=== PATIENT | male | born 2000 | race Caucasian/White ===

== ENCOUNTER → 2022-12-09 08:33 | Outpatient (BNVA) | payer MEDICAID, SELFPAY | PROVIDERS: Family Provider Pediatrics Adolescent Medicine; PCP Family Medicine Adult Medicine; Visit Provider Family Medicine Adult Medicine | DX: R55 Syncope and collapse (principal); Z82.49 Family history of ischemic heart disease and other diseases of the circulatory system; Z83.3 Family history of diabetes mellitus; R09.89 Other specified symptoms and signs involving the circulatory and respiratory systems | CPT/HCPCS: 80053; 80061; 83036; 84443; 85025 ==

== ENCOUNTER 2023-03-14 08:56 | Emergency (ER) | payer MEDICAID, SELFPAY ==
[2023-03-14 09:02] VITALS: BP 136/98; PULSE 52; RESP 18; TEMP 36.6; O2SAT 100; BMI 22.9
--- NOTE | 2023-03-14 09:15 | XRR_ITS ---
PROCEDURE INFORMATION: Exam: XR Chest Exam date and time: 03/14/2023 8:23 AM Age: 22 years old Clinical indication: Pain; Shortness of breath; On breathing; Additional info: Chest pain/sob TECHNIQUE: Imaging protocol: Radiologic exam of the chest. Views: 1 view. COMPARISON: No relevant prior studies available. FINDINGS: Lungs: Lungs are clear. Pleural spaces: There is no pleural effusion or pneumothorax. Heart/Mediastinum: Cardiomediastinal contours are unremarkable. Bones/joints: Bones are unremarkable. XR/XR chest 1V portable [id number] IMPRESSION: No acute findings.
--- NOTE | 2023-03-14 09:16 | W.ED.CHESTPA ---
HPI - Chest Pain General: Chief Complaint: Chest Pain Stated Complaint: sob, chest pain Time Seen by Provider: 03/14/23 08:57 Source: patient and other (girlfriend) Mode of arrival: ambulatory Limitations: no limitations History of Present Illness: Patient is a 22-year-old male who presents to ED today along with his girlfriend for complaints of chest pain and shortness of breath that has been present over the past few days. Patient tells me he is very anxious and wants to be checked for cancer . Patient states pain seems to be worse with coughing and deep inhalation. He has not found any alleviating factors to his discomfort. He states he has had a little bit of a sore throat and some nasal congestion but denies chest congestion or productive cough. Patient states he vapes, smokes cigarettes, and smokes marijuana. Patient states discomfort does not seem to be affected by exertion. He has not noticed any lower extremity swelling. No fevers. MD complaint: chest pain and other (SOB) Onset (ago): day(s) Timing of current episode: constant Prior episodes: No Pain location: substernal Pain radiation: none Relieving factors: nothing Exacerbating factors: inspiration Associated symptoms: Reports abdominal pain, dyspnea and nausea; Deny fever(s), palpitations, syncope or vomiting Treatment prior to arrival: none Risk Factors: Coronary artery disease risk factors: smoking history Thoracic aortic dissection risk factors: none Review of Systems Const: Denies: fever(s), chills, body aches, fatigue or malaise Card: Reports: chest pain and dyspnea on exertion; Denies: palpitations, irregular heart rhythm, edema, swelling of feet/ankles, lightheadedness, syncope, pre-syncope, orthopnea, leg pain with exertion or acrocyanosis Resp: Reports: dyspnea, non-productive cough and pain on inspiration; Denies: productive cough, wheezing, change in phlegm color, hemoptysis or chest congestion GI: Reports: abdominal pain and nausea; Denies: vomiting, hematemesis, heartburn or diarrhea : Denies: dysuria, hematuria or testicular pain Musc: Denies: neck pain, back pain, extremity pain or joint pain Skin/Breast: Denies: rash Neuro: Denies: headache(s) or dizziness PFS ED PFSH: Medical History Family history of diabetes mellitus (DM) Family history of heart disease Lymph node symptom Syncope and collapse Surgical History No pertinent past surgical history Family History Father Seizures Mother No problems noted. Social History Smoking and tobacco status: current every day smoker Quit status (tobacco): not considering quitting Second hand smoke exposure: No Smoking risk assessment/counseling performed?: No Alcohol intake: current Alcohol intake frequency: few times a month Alcohol type: beer Desire information about alcohol rehabilitation?: No Counseling given: No Substance/Drug Use: current Substance/Drug use frequency: few times a week Desire information about substance/drug rehabilitation?: No Counseling given: No Physical Exam Const: COMMON NORMALS: no acute distress, average body habitus, patient oriented x3, no limitations, healthy appearing, alert and well nourished GENERAL APPEARANCE: anxious HENMT: COMMON NORMALS: normocephalic and atraumatic HEAD & SCALP: normal to inspection, normocephalic and atraumatic Neck/C-Spine: COMMON NORMALS: no JVD GENERAL: Yes normal visual inspection Chest: COMMONS NORMALS: normal inspection of the chest OTHER: chest pain is easily reproducible with palpation of anterior chest wall Resp: COMMON NORMALS: normal respiratory effort and clear to auscultation bilaterally AUSCULTATION: clear to auscultation bilaterally Cardio: COMMON NORMALS: no JVD, regular rate and regular rhythm RATE: regular rate RHYTHM: regular rhythm GI: COMMON NORMALS: Normal to inspection, nondistended, normoactive bowel sounds present, Soft to palpation, No hepatosplenomegaly present and no masses INSPECTION: Yes normal to inspection AUSCULTATION: Yes normoactive bowel sounds PALPATION: Yes Soft to palpation, Yes Tenderness to palpation present (GI) (mild generalized tenderness-non surgical exam ), No Guarding due to palpation present (GI), No Rigid due to palpation and Yes No hepatosplenomegaly present : COMMON NORMALS: Yes no CVA tenderness BLADDER/KIDNEY EXAM: Yes no CVA tenderness Back/Pelvis: COMMON NORMALS: no CVA tenderness, thoracic and lumbar spine normal to inspection, no thoracic nor lumbar tenderness and thoraco-lumbar ROM normal Extremity: COMMON NORMALS: normal to inspection GENERAL: Yes normal exam except as noted Neuro: CARLOS COMA SCALE: document GCS findings Carlos coma scale eye opening: Spontaneous [place] coma scale verbal response: Orientated Carlos coma scale motor response: Obey commands Carlos coma scale total score: 15 COMMON NORMALS: patient oriented x3 SENSORIUM/ORIENTATION: Yes alert Skin: COMMON NORMALS: no rashes or lesions noted GENERAL SKIN EXAM: no rashes or lesions noted Course Vital Signs: Vital signs: Vital Signs Temperature 97.9 F 03/14/23 09:02 Pulse Rate 52 L 03/14/23 11:03 Respiratory Rate 18 03/14/23 09:02 Blood Pressure 134/84 03/14/23 11:03 Pulse Oximetry 99 03/14/23 11:03 Oxygen Delivery Me thod Room Air 03/14/23 09:02 MDM - Chest Pain Medical Decision Making Patient appears in no acute distress other than he is very anxious that his symptoms could be secondary to cancer. Vital signs are stable. He is slightly bradycardic but this is most likely physiologic as patient is young/fit/active. Symptoms most likely are secondary to patient's chronic inhalant use of vapes, marijuana, and cigarettes. Discussed with patient at length the need to discontinue these. Blood work overall is unremarkable. His CXR is normal. EKG showing no ischemic or concerning findings. Reviewed with Dr. Ponce. Patient was offered steroids but he feels this would most likely worsen his anxiety. Discussed following up with primary care by the end of the week. Return ED precautions given. Lab Data 03/14/23 09:50 03/14/23 09:50 Radiology Impressions Chest X-Ray 03/14/23 09:15 IMPRESSION: No acute findings. Laboratory Results WBC 8.4 10^3/uL (4.5-13.0) 03/14/23 09:50 RBC 4.89 10^6/uL (4.1-5.3) 03/14/23 09:50 Hgb 15.7 g/dL (11.7-16.6) 03/14/23 09:50 Hct 46.6 % (42.0-52.0) 03/14/23 09:50 MCV 95.3 fl (80-94) H 03/14/23 09:50 MCH 32.1 pg (28.0-34.0) 03/14/23 09:50 MCHC 33.7 g/dL (30.0-36.0) 03/14/23 09:50 RDW 12.1 % (12.1-15.1) 03/14/23 09:50 Plt Count 213 10^3/cmm (130-400) 03/14/23 09:50 MPV 11.5 fL (7.4-10.4) H 03/14/23 09:50 Neut % (Auto) 50.2 % 03/14/23 09:50 Lymph % (Auto) 35.4 % 03/14/23 09:50 Sully % (Auto) 9.1 % 03/14/23 09:50 Eos % (Auto) 4.6 % 03/14/23 09:50 Baso % (Auto) 0.6 % 03/14/23 09:50 Neut # (Auto) 4.23 10^3/uL (1.8-8.0) 03/14/23 09:50 Lymph # (Auto) 3.0 10^3/uL (1.5-6.5) 03/14/23 09:50 [place]ully # (Auto) 0.8 10^3/uL (0.2-0.9) 03/14/23 09:50 Eos # (Auto) 0.4 10^3/uL (0.0-0.8) 03/14/23 09:50 Baso # (Auto) 0.1 10^3/uL (0.0-0.1) 03/14/23 09:50 Nucleated RBC % (auto) 0 % 03/14/23 09:50 Nucleated RBCs # 0.0 /100WBC 03/14/23 09:50 Sodium 139 mmol/L (136-145) 03/14/23 09:50 Potassium 4.1 mmol/L (3.5-5.1) 03/14/23 09:50 Chloride 108 mmol/L (98-107) H 03/14/23 09:50 Carbon Dioxide 22 mmol/L (22-29) 03/14/23 09:50 Anion Gap 13.1 (5-19) 03/14/23 09:50 BUN 13 mg/dL (6-20) 03/14/23 09:50 Creatinine 0.7 mg/dL (0.7-1.2) 03/14/23 09:50 GFR Calculation 143.8 mL/min (90-130) H 03/14/23 09:50 Glucose 88 mg/dL (65-115) 03/14/23 09:50 Calculated Osmolality 288 mOsm/kg (285-295) 03/14/23 09:50 Calcium 8.9 mg/dL (8.5-10.5) 03/14/23 09:50 Total Bilirubin 0.3 mg/dL (0.15-1.2) 03/14/23 09:50 AST 10 U/L (0-40) 03/14/23 09:50 ALT 12 U/L (0-41) 03/14/23 09:50 Alkaline Phosphatase 74 U/L (40-130) 03/14/23 09:50 Total Protein 6.6 g/dL (6.6-8.7) 03/14/23 09:50 Albumin 4.3 g/dL (3.5-5.2) 03/14/23 09:50 Globulin 2.3 g/dL (1.3-4.6) 03/14/23 09:50 Discharge Plan Discharge Patient Disposition: Home Clinical Impression: E-cigarette or vaping product use associated lung injury (EVALI) Condition: Stable Prescriptions: No Action No Known Home Medications Discharge Orders: Discharge ED (Routine); Ordered 03/14/23 Ordered By: Jo Ann Irwin Referrals: Federico Quezada MD [Primary Care Provider] - Patient Instructions: How to Stop Smoking (ED), EVALI (E-cigarette or Vaping-Associated Lung Injury) (ED), Quitting Smoking Activity Restrictions/Additional Instructions: As we discussed I think the most likely etiology for your symptoms is related to your vaping use, cigarette smoking, and marijuana smoking. We discussed forming a plan to gradually discontinue these. Please follow-up with your primary care provider by the end of the week for reevaluation. You need to return to the emergency department for worsening chest pain, shortness of breath, difficulty breathing. 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
--- NOTE | 2023-03-14 09:24 | ECG_ITS ---
[facility] Test Date: 2023-03-14 Pat Name: Erlin Kearney Department: Room: Gender: Male Mailroom Personnel: : 2000 Requested By: Jo Ann Irwin Order Number: [id number] Chong MD: Chi Pedro M.D. Measurements Intervals [place] Rate: 49 P: -8 VT: 120 QRS: 86 QRSD: 90 T: 67 QT: 412 QTc: 372 Interpretive Statements SINUS BRADYCARDIA No previous ECG available for comparison Electronically Signed On 03-15-2023 8:31:19 CDT by Chi Pedro M.D. [id number]
[2023-03-14 09:40] VITALS: BP 124/69; PULSE 73; O2SAT 97
[2023-03-14 10:05] LABS: Basophils # 0.1 10^3/uL (0.0-0.1); Basophils % 0.6 %; Eosinophils # 0.4 10^3/uL (0.0-0.8); Eosinophils % 4.6 %; Hematocrit 46.6 % (42.0-52.0); Hemoglobin 15.7 g/dL (11.7-16.6); Lymphocytes % 35.4 %; Mean Corpuscular HGB Conc 33.7 g/dL (30.0-36.0); Mean Corpuscular Hemoglobin 32.1 pg (28.0-34.0); Mean Corpuscular Volume 95.3 fl (80-94); Mean Platelet Volume 11.5 fL (7.4-10.4); Monocytes # 0.8 10^3/uL (0.2-0.9); Monocytes % 9.1 %; Neutrophils # 4.23 10^3/uL (1.8-8.0); Neutrophils % 50.2 %; Nucleated Red Blood Cells % 0 %; Platelet Count 213 10^3/cmm (130-400); Red Blood Count 4.89 10^6/uL (4.1-5.3); Red Cell Distribution Width 12.1 % (12.1-15.1); White Blood Count 8.4 10^3/uL (4.5-13.0)
[2023-03-14 10:17] VITALS: BP 120/80; PULSE 56; O2SAT 99
[2023-03-14 10:23] LABS: Alanine Aminotransferase 12 U/L (0-41); Albumin Level 4.3 g/dL (3.5-5.2); Alkaline Phosphatase 74 U/L (40-130); Anion Gap 13.1 (5-19); Aspartate Amino Transferase 10 U/L (0-40); Blood Urea Nitrogen 13 mg/dL (6-20); Calcium 8.9 mg/dL (8.5-10.5); Carbon Dioxide 22 mmol/L (22-29); Chloride 108 mmol/L (98-107); Creatinine Clr Calc Pharmacy 173.4048; Globulin 2.3 g/dL (1.3-4.6); Glomerular Filtration Rate 143.8 mL/min (90-130); Glucose 88 mg/dL (65-115); Osmolality Calculated 288 mOsm/kg (285-295); Potassium 4.1 mmol/L (3.5-5.1); Sodium 139 mmol/L (136-145); Total Bilirubin 0.3 mg/dL (0.15-1.2); Total Protein 6.6 g/dL (6.6-8.7)
[2023-03-14 11:03] VITALS: BP 134/84; PULSE 52; O2SAT 99
== END 2023-03-14 11:04 | disposition home or self-care (01) ==
PROVIDERS: Emergency Provider Physician Assistant; PCP Family Medicine Adult Medicine
DX: U07.0 Vaping-related disorder (principal); F17.210 Nicotine dependence, cigarettes, uncomplicated
CPT/HCPCS: 36415; 71045; 80053; 85025; 93005; 99285

== ENCOUNTER → 2023-07-03 18:45 | Outpatient (BNVA) | payer MEDICAID, SELFPAY | PROVIDERS: PCP Family Medicine Adult Medicine; Visit Provider Nurse Practitioner Family | DX: R50.9 Fever, unspecified (principal); R05.9 Cough, unspecified; R06.02 Shortness of breath; Z20.822 Contact with and (suspected) exposure to COVID-19 | CPT/HCPCS: 87426 ==

== ENCOUNTER 2024-02-20 20:05 | Emergency (ER) | payer MEDICAID, SELFPAY ==
[2024-02-20 20:12] VITALS: BP 116/72; PULSE 116; RESP 18; TEMP 37.1; O2SAT 99
--- NOTE | 2024-02-20 20:28 | XRR_ITS ---
PROCEDURE INFORMATION: Exam: XR Chest Exam date and time: 02/20/2024 8:31 PM Age: 23 years old Clinical indication: Angina; Additional info: Cp TECHNIQUE: Imaging protocol: Radiologic exam of the chest. Views: 1 view. COMPARISON: CR XR chest 1V portable [id number] 03/14/2023 8:23 AM FINDINGS: Lungs: Unremarkable. No consolidation. Pleural spaces: Unremarkable. No pleural effusion. No pneumothorax. Heart/Mediastinum: Unremarkable. No cardiomegaly. Bones/joints: Unremarkable. XR/XR chest 1V portable [id number] IMPRESSION: No acute findings.
--- NOTE | 2024-02-20 20:29 | ECG_ITS ---
[facility] Test Date: 2024-02-20 Pat Name: Erlin Kearney Department: Room: Gender: Male Structural Analysis Engineer: : 2000 Requested By: Marlon Veloz Order Number: [id number] Castillo MD: Chi Pedro M.D. Measurements Intervals [place] Rate: 98 P: 86 [place]: 144 QRS: 93 QRSD: 92 T: 68 QT: 326 QTc: 418 Interpretive Statements SINUS RHYTHM WITH SINUS ARRHYTHMIA BORDERLINE RIGHT AXIS DEVIATION [QRS AXIS > 90] Compared to ECG 03/14/2023 09:24:31 Sinus bradycardia no longer present Electronically Signed On 02-20-2024 23:21:08 CDT by Chi Pedro M.D. [id number]
--- NOTE | 2024-02-20 20:30 | W.ED.CHESTPA ---
Documented by User: BLANCA Bliss 02/20/24 22:39 HPI - Chest Pain General: Chief Complaint: Chest Pain Stated Complaint: Chest pain jumping in chest left arm pain Time Seen by Provider: 02/20/24 20:15 Source: patient Mode of arrival: ambulatory Limitations: no limitations History of Present Illness: Patient is a 23-year-old male who presents to the emergency department complaining of chest pain onset intermittently for the past few years. Patient states that the pains began after he took the [employer] COVID shot in 2019. He notes that it was the worst its ever been this morning and has been associated with palpitations, diaphoresis, shortness of breath, left arm pain, and back pain. He also notes that he smokes marijuana regularly, and has been nauseous. He denies any cardiac history. He notes that he was seen in the emergency department for chest pain once in the past, however was discharged shortly after he told them that the pain was due to the COVID shot. He sees Dr. Quezada for primary care, and states it has been about a year since he has seen him. He denies any medical history or medications. No pertinent family history in terms of cardiac issues. The chest pain is reportedly epigastric in nature, and radiates to both his left and right chest. He notes that it is sharp, and is currently present on examination. No specific alleviating or exacerbating factors noted. MD complaint: chest pain Onset (ago): year(s) Timing of current episode: episodic Prior episodes: Yes Pain location: epigastric Pain radiation: left arm and back Severity: moderate Quality: sharp Relieving factors: nothing Exacerbating factors: nothing Associated symptoms: Reports abdominal pain, diaphoresis, dyspnea, nausea and palpitations; Deny fever(s) or vomiting Treatment prior to arrival: none Risk Factors: Coronary artery disease risk factors: none Thoracic aortic dissection risk factors: none Review of Systems General: Reports: 10 or more systems reviewed and unremarkable except in HPI and below Const: Reports: diaphoresis; Denies: fever(s), chills or fatigue Eyes: Denies: change in vision ENMT: Denies: throat pain, ear or mastoid pain or nasal discharge Card: Reports: chest pain and palpitations; Denies: swelling of feet/ankles or lightheadedness Resp: Reports: dyspnea; Denies: productive cough or wheezing GI: Reports: abdominal pain and nausea; Denies: vomiting, diarrhea or constipation : Denies: flank pain, difficulty urinating, dysuria or urinary frequency Musc: Reports: back pain and extremity pain (Left arm); Denies: neck pain or joint pain Skin/Breast: Denies: rash Neuro: Denies: headache(s), numbness in extremities or weakness in extremities PFSH ED PFSH: Medical History Lymph node symptom Syncope and collapse Family history of diabetes mellitus (DM) Family history of heart disease Surgical History No pertinent past surgical history Family History Father Seizures Mother No problems noted. Social History Smoking and tobacco/nicotine status: current every day tobacco/nicotine user Quit status (tobacco/nicotine): not considering quitting Second hand smoke exposure: No Alcohol intake: current Alcohol intake frequency: few times a month Alcohol type: beer Substance/Drug Use: current Substance/Drug use frequency: few times a week Physical Exam Const: COMMON NORMALS: no acute distress, patient oriented x3 and no limitations GENERAL APPEARANCE: cooperative, comfortable, well developed and anxious ORIENTATION/CONSCIOUSNESS: Yes awake, Yes oriented to person, Yes oriented to place and Yes oriented to time HENMT: COMMON NORMALS: normocephalic, atraumatic and hearing grossly normal bilaterally HEAD & SCALP: normocephalic and atraumatic Eye: COMMON NORMALS: Equal, round and reactive pupils present, EOMs intact bilaterally and conjunctivae normal CONJUNCTIVA: Yes conjunctivae normal PUPIL: Yes Equal, round and reactive pupils present Neck/C-Spine: COMMON NORMALS: full ROM, supple and no JVD Chest: COMMONS NORMALS: normal inspection of the chest Resp: COMMON NORMALS: normal respiratory effort, No retractions, No use of accessory muscles and clear to auscultation bilaterally AUSCULTATION: clear to auscultation bilaterally Cardio: COMMON NORMALS: no JVD, regular rhythm, No clicks present (Cardio), No murmurs present (Cardio) and No rub (Cardio) RATE: tachycardic RHYTHM: regular rhythm GI: COMMON NORMALS: Normal to inspection, nondistended, normoactive bowel sounds present and Soft to palpation AUSCULTATION: Yes normoactive bowel sounds PALPATION: Yes Soft to palpation and Yes Tenderness to palpation present (GI) (Epigastric) RECTAL EXAM: Yes deferred : COMMON NORMALS: Yes no CVA tenderness BLADDER/KIDNEY EXAM: Yes no CVA tenderness Back/Pelvis: COMMON NORMALS: no CVA tenderness, thoracic and lumbar spine normal to inspection, no thoracic nor lumbar tenderness and thoraco-lumbar ROM normal Extremity: COMMON NORMALS: normal to inspection, full ROM and capillary refill normal Neuro: COMMON NORMALS: patient oriented x3, moves all extremities, no focal motor deficits and no sensory deficits noted SENSORIUM/ORIENTATION: Yes oriented to person, Yes oriented to place and Yes oriented to time Psych: COMMON NORMALS: mental status grossly normal and Normal thought process present THOUGHT PROCESS: Normal thought process present Skin: COMMON NORMALS: no rashes or lesions noted GENERAL SKIN EXAM: no rashes or lesions noted Course Vital Signs: Vital signs: Vital Signs Temperature 98.8 F 02/20/24 20:12 Pulse Rate 88 02/20/24 22:00 Respiratory Rate 14 02/20/24 22:00 Blood Pressure 114/79 02/20/24 22:00 Pulse Oximetry 99 02/20/24 22:00 Oxygen Delivery Me thod Room Air 02/20/24 22:00 MDM - Chest Pain Medical Decision Making Patient was seen for chest pain, stating he has had past few years since receiving COVID vaccination. Noted multiple other symptoms, states he recently went cold turkey with marijuana. On arrival his vitals were normal aside from an elevated heart rate, however patient was anxious. His examination was unremarkable. His potassium was slightly low, he was given 40 mill equivalents here in the emergency department. His chest x-ray and EKG were both unremarkable. Troponin normal. D-dimer negative. The rest of his lab work essentially unremarkable. Patient was given Zofran and fluids, and upon recheck states he felt better. I informed him of his normal workup, and will treat his epigastric pain with Pepcid and give him Zofran to take for the nausea. I informed him to increase his fluid intake as well as to follow-up with his primary care in the next week for reevaluation and to discuss ED visit. I do believe his pain is related to acid reflux and there is a component of anxiety in terms of his systemic symptoms, and patient does believe that he possibly had a panic attack. For this I also told him to follow-up with primary care to discuss the symptoms. Patient agrees with this plan and strict return precautions were given. Lab Data I reviewed the patient's lab results. 02/20/24 20:48 02/20/24 20:48 Radiology Impressions Chest X-Ray 02/20/24 20:28 IMPRESSION: No acute findings. Laboratory Results WBC 11.28 10^3/uL (3.29-11.43) 02/20/24 20:48 RBC 4.74 10^6/uL (3.85-5.65) 02/20/24 20:48 Hgb 15.30 g/dL (11.27-16.99) 02/20/24 20:48 Hct 39.9 % (37-53) 02/20/24 20:48 MCV 84.2 fl (82-101) 02/20/24 20:48 MCH 32.3 pg (27-33) 02/20/24 20:48 MCHC 38.3 g/dL (30-55) 02/20/24 20:48 RDW 11.9 % (12.1-15.1) L 02/20/24 20:48 Plt Count 234 10^3/cmm (157-399) 02/20/24 20:48 MPV 11.7 fL (7.4-10.4) H 02/20/24 20:48 Neut % (Auto) 45.7 % 02/20/24 20:48 Lymph % (Auto) 42.2 % 02/20/24 20:48 [place] % (Auto) 10.1 % 02/20/24 20:48 Eos % (Auto) 1.2 % 02/20/24 20:48 Baso % (Auto) 0.6 % 02/20/24 20:48 Neut # (Auto) 5.15 10^3/uL (1.8-7.7) 02/20/24 20:48 Lymph # (Auto) 4.8 10^3/uL (0.8-4.8) 02/20/24 20:48 [place] # (Auto) 1.1 10^3/uL (0.2-0.9) H 02/20/24 20:48 Eos # (Auto) 0.1 10^3/uL (0.0-0.8) 02/20/24 20:48 Baso # (Auto) 0.1 10^3/uL (0.0-0.1) 02/20/24 20:48 Nucleated RBC % (auto) 0 % 02/20/24 20:48 Nucleated RBCs # 0.0 /100WBC 02/20/24 20:48 D-Dimer <= 0.27 ug/mLFEU (0-0.59) 02/20/24 20:48 Sodium 141 mmol/L (136-145) 02/20/24 20:48 Potassium 3.2 mmol/L (3.5-5.1) L 02/20/24 20:48 Chloride 103 mmol/L (98-107) 02/20/24 20:48 Carbon Dioxide 21 mmol/L (22-29) L 02/20/24 20:48 Anion Gap 20.2 (5-19) H 02/20/24 20:48 BUN 12 mg/dL (6-20) 02/20/24 20:48 Creatinine 1.0 mg/dL (0.7-1.2) 02/20/24 20:48 GFR Calculation 94.3 mL/min (90-130) 02/20/24 20:48 Glucose 83 mg/dL (65-115) 02/20/24 20:48 Calculated Osmolality 291 mOsm/kg (285-295) 02/20/24 20:48 Calcium 9.7 mg/dL (8.5-10.5) 02/20/24 20:48 Total Bilirubin 1.0 mg/dL (0.15-1.2) 02/20/24 20:48 AST 14 U/L (0-40) 02/20/24 20:48 ALT 9 U/L (0-41) 02/20/24 20:48 Alkaline Phosphatase 90 U/L (40-130) 02/20/24 20:48 Troponin T Baseline < 6 ng/L (0-15) 02/20/24 20:48 Total Protein 7.4 g/dL (6.6-8.7) 02/20/24 20:48 Albumin 4.9 g/dL (3.5-5.2) 02/20/24 20:48 Globulin 2.5 g/dL (1.3-4.6) 02/20/24 20:48 Lipase 7 U/L (13-60) L 02/20/24 20:48 Urine Color Yellow (Yellow) 02/20/24 21:11 Urine Appearance Sl hazy (CLEAR) A 02/20/24 21:11 Urine pH 5 (5-7) 02/20/24 21:11 Ur Specific [place] 1.025 (1.005-1.030) 02/20/24 21:11 Urine Protein Trace (Negative) 02/20/24 21:11 Urine Glucose (UA) Norm (Normal) 02/20/24 21:11 Urine Ketones 3+ (Negative) H 02/20/24 21:11 Urine Blood Neg (Negative) 02/20/24 21:11 Urine Nitrate Negative (Negative) 02/20/24 21:11 Urine Bilirubin 1+ (Negative) H 02/20/24 21:11 Urine Urobilinogen 1 mg/dL (Negative) H 02/20/24 21:11 Ur Leukocyte Esterase Negative (Negative) 02/20/24 21:11 Urine RBC None /hpf (0-2) 02/20/24 21:11 Urine WBC None /hpf (0-5) 02/20/24 21:11 Ur Squamous Epith Cells None /hpf (0-5) 02/20/24 21:11 Amorphous Sediment 1+ /hpf 02/20/24 21:11 Urine Bacteria Trace /hpf (NONE) 02/20/24 21:11 Urine Mucus 3+ /hpf 02/20/24 21:11 Urine Opiates Screen Negative ng/mL (Negative) 02/20/24 21:11 Ur Barbiturates Screen Negative ng/mL (Negative) 02/20/24 21:11 Ur Phencyclidine Scrn Negative ng/mL (Negative) 02/20/24 21:11 Ur Amphetamines Screen Negative ng/mL (Negative) 02/20/24 21:11 U Benzodiazepines Scrn Negative ng/mL (Negative) 02/20/24 21:11 Urine Cocaine Screen Negative ng/mL (Negative) 02/20/24 21:11 U Marijuana (THC) Screen Positive ng/mL (Negative) H 02/20/24 21:11 All radiology interpretation(s) finalized by discharge Discharge Plan Discharge Patient Disposition: Home Clinical Impression: Chest pain Qualifiers: Chest pain type: unspecified Qualified Code(s): R07.9 - Chest pain, unspecified Condition: Stable Prescriptions: New Pepcid 20 mg tablet 20 mg PO BID Qty: 30 0RF ondansetron HCl 4 mg tablet 4 mg PO Q8H Qty: 30 0RF No Action albuterol sulfate [Ventolin HFA] 90 mcg/actuation HFA aerosol inhaler 1 - 2 puff inhalation Q6H PRN (Reason: shortness of breath or wheezing) Qty: 8.5 0RF Discharge Orders: Discharge ED (Routine); Ordered 02/20/24 Ordered By: Marlon Chao Referrals: Federico Quezada MD [Primary Care Provider] - Discharge Diet: As Directed Discharge Activity: Increase activity as tolerated Patient Instructions: GERD (Gastroesophageal Reflux Disease) (ED), Noncardiac Chest Pain (ED) Activity Restrictions/Additional Instructions: Plenty of fluids. Zofran for nausea as needed. Pepcid as directed. Follow-up with your primary care as discussed. Return if you develop any new or worsening symptoms. 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 Social History Smoking and tobacco/nicotine status: current every day tobacco/nicotine user Quit status (tobacco/nicotine): not considering quitting Second hand smoke exposure: No Alcohol intake: current Alcohol intake frequency: few times a month Alcohol type: beer Substance/Drug Use: current Substance/Drug use frequency: few times a week Course Vital Signs: Vital signs: Vital Signs Temperature 98.8 F 02/20/24 20:12 Pulse Rate 88 02/20/24 22:00 Respiratory Rate 14 02/20/24 22:00 Blood Pressure 114/79 02/20/24 22:00 Pulse Oximetry 99 02/20/24 22:00 Oxygen Delivery Me thod Room Air 02/20/24 22:00 MDM - Chest Pain Medical Decision Making Patient was seen for chest pain, stating he has had past few years since receiving COVID vaccination. Noted multiple other symptoms, states he recently went cold turkey with marijuana. On arrival his vitals were normal aside from an elevated heart rate, however patient was anxious. His examination was unremarkable. His potassium was slightly low, he was given 40 mill equivalents here in the emergency department. His chest x-ray and EKG were both unremarkable. Troponin normal. D-dimer negative. The rest of his lab work essentially unremarkable. Patient was given Zofran and fluids, and upon recheck states he felt better. I informed him of his normal workup, and will treat his epigastric pain with Pepcid and give him Zofran to take for the nausea. I informed him to increase his fluid intake as well as to follow-up with his primary care in the next week for reevaluation and to discuss ED visit. I do believe his pain is related to acid reflux and there is a component of anxiety in terms of his systemic symptoms, and patient does believe that he possibly had a panic attack. For this I also told him to follow-up with primary care to discuss the symptoms. Patient agrees with this plan and strict return precautions were given. Chart reviewed Lab Data 02/20/24 20:48 02/20/24 20:48 Radiology Impressions Chest X-Ray 02/20/24 20:28 IMPRESSION: No acute findings. Laboratory Results WBC 11.28 10^3/uL (3.29-11.43) 02/20/24 20:48 RBC 4.74 10^6/uL (3.85-5.65) 02/20/24 20:48 Hgb 15.30 g/dL (11.27-16.99) 02/20/24 20:48 Hct 39.9 % (37-53) 02/20/24 20:48 MCV 84.2 fl (82-101) 02/20/24 20:48 MCH 32.3 pg (27-33) 02/20/24 20:48 MCHC 38.3 g/dL (30-55) 02/20/24 20:48 RDW 11.9 % (12.1-15.1) L 02/20/24 20:48 Plt Count 234 10^3/cmm (157-399) 02/20/24 20:48 MPV 11.7 fL (7.4-10.4) H 02/20/24 20:48 Neut % (Auto) 45.7 % 02/20/24 20:48 Lymph % (Auto) 42.2 % 02/20/24 20:48 [place] % (Auto) 10.1 % 02/20/24 20:48 Eos % (Auto) 1.2 % 02/20/24 20:48 Baso % (Auto) 0.6 % 02/20/24 20:48 Neut # (Auto) 5.15 10^3/uL (1.8-7.7) 02/20/24 20:48 Lymph # (Auto) 4.8 10^3/uL (0.8-4.8) 02/20/24 20:48 [place] # (Auto) 1.1 10^3/uL (0.2-0.9) H 02/20/24 20:48 Eos # (Auto) 0.1 10^3/uL (0.0-0.8) 02/20/24 20:48 Baso # (Auto) 0.1 10^3/uL (0.0-0.1) 02/20/24 20:48 Nucleated RBC % (auto) 0 % 02/20/24 20:48 Nucleated RBCs # 0.0 /100WBC 02/20/24 20:48 D-Dimer <= 0.27 ug/mLFEU (0-0.59) 02/20/24 20:48 Sodium 141 mmol/L (136-145) 02/20/24 20:48 Potassium 3.2 mmol/L (3.5-5.1) L 02/20/24 20:48 Chloride 103 mmol/L (98-107) 02/20/24 20:48 Carbon Dioxide 21 mmol/L (22-29) L 02/20/24 20:48 Anion Gap 20.2 (5-19) H 02/20/24 20:48 BUN 12 mg/dL (6-20) 02/20/24 20:48 Creatinine 1.0 mg/dL (0.7-1.2) 02/20/24 20:48 GFR Calculation 94.3 mL/min (90-130) 02/20/24 20:48 Glucose 83 mg/dL (65-115) 02/20/24 20:48 Calculated Osmolality 291 mOsm/kg (285-295) 02/20/24 20:48 Calcium 9.7 mg/dL (8.5-10.5) 02/20/24 20:48 Total Bilirubin 1.0 mg/dL (0.15-1.2) 02/20/24 20:48 AST 14 U/L (0-40) 02/20/24 20:48 ALT 9 U/L (0-41) 02/20/24 20:48 Alkaline Phosphatase 90 U/L (40-130) 02/20/24 20:48 Troponin T Baseline < 6 ng/L (0-15) 02/20/24 20:48 Total Protein 7.4 g/dL (6.6-8.7) 02/20/24 20:48 Albumin 4.9 g/dL (3.5-5.2) 02/20/24 20:48 Globulin 2.5 g/dL (1.3-4.6) 02/20/24 20:48 Lipase 7 U/L (13-60) L 02/20/24 20:48 Urine Color Yellow (Yellow) 02/20/24 21:11 Urine Appearance Sl hazy (CLEAR) A 02/20/24 21:11 Urine pH 5 (5-7) 02/20/24 21:11 Ur Specific [place] 1.025 (1.005-1.030) 02/20/24 21:11 Urine Protein Trace (Negative) 02/20/24 21:11 Urine Glucose (UA) Norm (Normal) 02/20/24 21:11 Urine Ketones 3+ (Negative) H 02/20/24 21:11 Urine Blood Neg (Negative) 02/20/24 21:11 Urine Nitrate Negative (Negative) 02/20/24 21:11 Urine Bilirubin 1+ (Negative) H 02/20/24 21:11 Urine Urobilinogen 1 mg/dL (Negative) H 02/20/24 21:11 Ur Leukocyte Esterase Negative (Negative) 02/20/24 21:11 Urine RBC None /hpf (0-2) 02/20/24 21:11 Urine WBC None /hpf (0-5) 02/20/24 21:11 Ur Squamous Epith Cells None /hpf (0-5) 02/20/24 21:11 Amorphous Sediment 1+ /hpf 02/20/24 21:11 Urine Bacteria Trace /hpf (NONE) 02/20/24 21:11 Urine Mucus 3+ /hpf 02/20/24 21:11 Urine Opiates Screen Negative ng/mL (Negative) 02/20/24 21:11 Ur Barbiturates Screen Negative ng/mL (Negative) 02/20/24 21:11 Ur Phencyclidine Scrn Negative ng/mL (Negative) 02/20/24 21:11 Ur Amphetamines Screen Negative ng/mL (Negative) 02/20/24 21:11 U Benzodiazepines Scrn Negative ng/mL (Negative) 02/20/24 21:11 Urine Cocaine Screen Negative ng/mL (Negative) 02/20/24 21:11 U Marijuana (THC) Screen Positive ng/mL (Negative) H 02/20/24 21:11 Discharge Plan Discharge Patient Disposition: Home Clinical Impression: Chest pain Qualifiers: Chest pain type: unspecified Qualified Code(s): R07.9 - Chest pain, unspecified Condition: Stable Prescriptions: New Pepcid 20 mg tablet 20 mg PO BID Qty: 30 0RF ondansetron HCl 4 mg tablet 4 mg PO Q8H Qty: 30 0RF No Action albuterol sulfate [Ventolin HFA] 90 mcg/actuation HFA aerosol inhaler 1 - 2 puff inhalation Q6H PRN (Reason: shortness of breath or wheezing) Qty: 8.5 0RF Discharge Orders: Discharge ED (Routine); Ordered 02/20/24 Ordered By: Marlon Chao Referrals: Federico Quezada MD [Primary Care Provider] - Discharge Diet: As Directed Discharge Activity: Increase activity as tolerated Patient Instructions: GERD (Gastroesophageal Reflux Disease) (ED), Noncardiac Chest Pain (ED) Activity Restrictions/Additional Instructions: Plenty of fluids. Zofran for nausea as needed. Pepcid as directed. Follow-up with your primary care as discussed. Return if you develop any new or worsening symptoms. 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
[2024-02-20] MEDS: sodium chloride 0.9% 1,000 ML 999 ML IV (20:54)
[2024-02-20] MEDS: ondansetron 2 mg/ML SDV 2 mL 4 MG IVP (20:59)
[2024-02-20 21:00] LABS: Basophils # 0.1 10^3/uL (0.0-0.1); Basophils % 0.6 %; Eosinophils # 0.1 10^3/uL (0.0-0.8); Eosinophils % 1.2 %; Hematocrit 39.9 % (37-53); Lymphocytes # 4.8 10^3/uL (0.8-4.8); Lymphocytes % 42.2 %; Mean Corpuscular HGB Conc 38.3 g/dL (30-55); Mean Corpuscular Hemoglobin 32.3 pg (27-33); Mean Corpuscular Volume 84.2 fl (82-101); Mean Platelet Volume 11.7 fL (7.4-10.4); Monocytes # 1.1 10^3/uL (0.2-0.9); Monocytes % 10.1 %; Neutrophils # 5.15 10^3/uL (1.8-7.7); Neutrophils % 45.7 %; Nucleated Red Blood Cells % 0 %; Platelet Count 234 10^3/cmm (157-399); Red Blood Count 4.74 10^6/uL (3.85-5.65); Red Cell Distribution Width 11.9 % (12.1-15.1); White Blood Count 11.28 10^3/uL (3.29-11.43)
[2024-02-20 21:13] VITALS: BP 120/79; PULSE 73; RESP 18; O2SAT 99
[2024-02-20 21:14] LABS: D Dimer <= 0.27 ug/mLFEU (0-0.59)
[2024-02-20 21:17] LABS: Troponin(5th) Baseline < 6 ng/L (0-15)
[2024-02-20 21:18] LABS: Alanine Aminotransferase 9 U/L (0-41); Albumin Level 4.9 g/dL (3.5-5.2); Alkaline Phosphatase 90 U/L (40-130); Aspartate Amino Transferase 14 U/L (0-40); Blood Urea Nitrogen 12 mg/dL (6-20); Calcium 9.7 mg/dL (8.5-10.5); Carbon Dioxide 21 mmol/L (22-29); Chloride 103 mmol/L (98-107); Globulin 2.5 g/dL (1.3-4.6); Glomerular Filtration Rate 94.3 mL/min (90-130); Glucose 83 mg/dL (65-115); Lipase 7 U/L (13-60); Osmolality Calculated 291 mOsm/kg (285-295); Sodium 141 mmol/L (136-145); Total Protein 7.4 g/dL (6.6-8.7)
[2024-02-20 21:25] LABS: Add Urine Microscopic? YES; Amphetamines Screen Urine Negative (Negative); Bacteria Urine TRACE /hpf; Barbiturates Screen Urine Negative (Negative); Benzodiazepines Screen Urine Negative (Negative); Bilirubin Urine 1+ (Negative); Blood Urine Neg (Negative); Cocaine Screen Urine Negative (Negative); Glucose Urine UA Norm (Normal); Ketones Urine 3+ (Negative); Leukocyte Esterase Urine Negative (Negative); Mucus Urine 3+ /hpf; Nitrate Urine Negative (Negative); Opiate Screen Urine Negative (Negative); PCP Screen Urine Negative (Negative); Protein Urine Trace (Negative); Specific Gravity, Urine 1.025 (1.005-1.030); THC Screen Urine Positive (Negative); Urine Appearance SL Hazy (CLEAR); Urine Color Yellow (Yellow); Urobilinogen Urine 1 mg/dL (Negative); pH Urine 5 (5-7)
[2024-02-20 21:26] LABS: Add Urine Culture? No; Amorphous Sediment Urine 1+ /hpf
[2024-02-20 21:27] LABS: Anion Gap 20.2 (5-19); Potassium 3.2 mmol/L (3.5-5.1)
[2024-02-20 21:30] VITALS: BP 121/67; PULSE 76; RESP 14; O2SAT 98
[2024-02-20 21:38] LABS: Slide Review Slide Review Perform
[2024-02-20] MEDS: potassium chloride ER 20 mEq Tablet 40 MEQ PO (21:44)
[2024-02-20 22:00] VITALS: BP 114/79; PULSE 88; RESP 14; O2SAT 99
--- NOTE | 2024-02-20 22:29 | ECG_ITS ---
[facility] Test Date: 2024-02-20 Pat Name: Erlin Kearney Department: Room: Gender: Male Trust Manager Assistant: : 2000 Requested By: Marlon Veloz Order Number: [id number] Castillo MD: Chi Pedro M.D. Measurements Intervals [place] Rate: 74 P: 60 ND: 165 QRS: 89 QRSD: 90 T: 71 QT: 366 QTc: 407 Interpretive Statements SINUS RHYTHM ST ELEVATION, PROBABLY EARLY REPOLARIZATION [ST ELEVATION WITH NORMALLY INFLECTED T-WAVE] Compared to ECG 02/20/2024 20:07:48 ST (T wave) deviation now present Early repolarization now present Sinus arrhythmia no longer present Electronically Signed On 02-20-2024 23:23:33 CDT by Chi Pedro M.D. [id number]
== END 2024-02-20 22:34 | disposition home or self-care (01) ==
PROVIDERS: Emergency Provider Physician Assistant; PCP Family Medicine Adult Medicine
DX: R07.9 Chest pain, unspecified (principal); Z72.0 Tobacco use
CPT/HCPCS: 71045; 80053; 80306; 81001; 83690; 84484; 85025; 85378; 93005; 96361; 96374; 99285; J2405; J7030

== ENCOUNTER → 2024-08-23 09:41 | Outpatient (BNVA) | payer MEDICAID, SELFPAY | PROVIDERS: PCP Family Medicine Adult Medicine | DX: J02.9 Acute pharyngitis, unspecified (principal) | CPT/HCPCS: 87400; 87426; 87880 ==